=== PATIENT | male | born 1950 | race Caucasian/White ===

== ENCOUNTER 2016-06-05 09:48 | Day surgery (SDC) | payer MEDICARE, OTHER ==
[~2016-06-05 09:48] MED LIST: LACTATED RINGERS 1,000 ML IV SCH
[2016-06-05] MEDS ORDERED: LACTATED RINGERS 1,000 ML ONE (10:05)
[2016-06-05] MEDS ORDERED: IV START KIT ONE (10:05)
[2016-06-05] MEDS ORDERED: PROPOFOL 40 ML IV ONE (11:19)
[2016-06-05 15:43] LABS: HELICOBACTER PYLORII DETECTION NEGATIVE (NEGATIVE)
--- NOTE | 2016-06-09 10:55 | SURGPATH ---
[facility] [address] [place] [id number] Patient Name: NATY HENDRIX MR#: [id number] : 1950 Gender: M Specimen #: [id number] Collected: 06/05/2016 Received: 06/06/2016 Reported: 06/09/2016 Submitting Phys: SHAYNA ULLOA Copy To Phys: [facility] EDI GLASER Clinical History / Pre-Operative Diagnosis: Unintentional weight loss; history of melena; rule out gastritis Specimen Source / Surgical Procedure Performed: Antral biopsy Interpretation: GASTRIC ANTRUM, BIOPSY: - MILD CHRONIC GASTRITIS. - NO MICROORGANISMS IDENTIFIED WITH ROUTINE STAINING. - NO EVIDENCE OF ACUTE INFLAMMATION, INTESTINAL METAPLASIA, OR MALIGNANCY. Electronically Signed Out Terence Cedeno M.D., Ph.D. Gross Description: The specimen is received in a formalin filled container labeled with the patient's name and "antral". Two love-larsen biopsies are 0.2 and 0.4 cm. Totally embedded in one cassette. Cruz Zavala PChencho Microscopic Description: Examination of multiple levels from the gastric antrum biopsy shows two fragments of gastric mucosa with expansion of the lamina propria by mixed inflammatory cell infiltrate consisting of lymphocytes, plasma cells, and occasional eosinophils. No neutrophils are seen. No microorganisms identified with routine staining. There is no evidence of intestinal metaplasia or malignancy. 1: [id number] K29.50
== END 2016-06-05 11:54 | disposition home or self-care (01) ==
LOC: SDC 09:48
PROVIDERS: ATTEND Internal Medicine Gastroenterology
PROC: 0DB68ZX Excision of Stomach, Via Natural or Artificial Opening Endoscopic, Diagnostic (ICD-10-PCS; principal; 2016-06-05)
DX: K29.50 Unspecified chronic gastritis without bleeding (principal); K29.80 Duodenitis without bleeding; R63.4 Abnormal weight loss; F17.210 Nicotine dependence, cigarettes, uncomplicated; F41.8 Other specified anxiety disorders; G47.33 Obstructive sleep apnea (adult) (pediatric); M79.1 Myalgia; G89.29 Other chronic pain; Z79.891 Long term (current) use of opiate analgesic; E78.5 Hyperlipidemia, unspecified; F43.10 Post-traumatic stress disorder, unspecified; Z85.46 Personal history of malignant neoplasm of prostate; Z88.5 Allergy status to narcotic agent; Z68.26 Body mass index [BMI] 26.0-26.9, adult

== ENCOUNTER 2016-08-07 09:45 | Day surgery (SDC) | payer MEDICARE, OTHER ==
[2016-08-07] MEDS ORDERED: IV START KIT ONE (10:23)
[2016-08-07] MEDS ORDERED: LACTATED RINGERS 1,000 ML ONE (10:23)
[2016-08-07] MEDS ORDERED: PROPOFOL 20 ML IV ONE (10:32)
== END 2016-08-07 11:35 | disposition home or self-care (01) ==
LOC: SDC 09:45
PROVIDERS: ATTEND Internal Medicine Gastroenterology
PROC: 0DJD8ZZ Inspection of Lower Intestinal Tract, Via Natural or Artificial Opening Endoscopic (ICD-10-PCS; principal; 2016-08-07)
DX: K57.30 Diverticulosis of large intestine without perforation or abscess without bleeding (principal); R63.4 Abnormal weight loss; K92.1 Melena; K21.9 Gastro-esophageal reflux disease without esophagitis; G47.33 Obstructive sleep apnea (adult) (pediatric); F17.210 Nicotine dependence, cigarettes, uncomplicated; I10 Essential (primary) hypertension; J43.9 Emphysema, unspecified; Z85.46 Personal history of malignant neoplasm of prostate
CPT/HCPCS: 45378; J7120

== ENCOUNTER 2016-08-23 12:40 | Emergency (ER) | payer MEDICARE, OTHER | END 2016-08-23 13:11 | disposition home or self-care (01) | LOC: ED 12:40 | DX: G89.29 Other chronic pain (principal); M25.552 Pain in left hip; I10 Essential (primary) hypertension ==